=== PATIENT | female | born 1990 | race Caucasian/White ===

== ENCOUNTER 2021-12-06 03:20 | Emergency (ER) | payer OTHER ==
[~2021-12-06] VITALS: Ht 165.1 cm; Wt 54.4 kg
[2021-12-06 03:30] VITALS: BP 105/67
--- NOTE | 2021-12-06 03:34 | NUR ---
PT TO [facility] WITH W/C WAITING FOR BED
--- NOTE | 2021-12-06 03:36 | NUR ---
PT TO BED 2 VIA W/C
[2021-12-06] MEDS ORDERED: LIDOCAINE/EPI MPF 1%1:200000 30 ML VIAL INJ ONE (04:00)
[2021-12-06] MEDS ORDERED: HYDROcodone/APAP 5/325 MG 1 TAB TAB PO ONE (04:00)
[2021-12-06] MEDS ORDERED: SULFAMETH/TRIMETH DS 800/160MG 1 TAB PO ONE (04:15)
[2021-12-06] MEDS ORDERED: SULF-59 PO (04:36)
[2021-12-06 04:43] VITALS: BP 124/75
== END 2021-12-06 04:45 | disposition home or self-care (01) ==
LOC: MED 03:20
DX: L02.416 Cutaneous abscess of left lower limb (principal); F17.210 Nicotine dependence, cigarettes, uncomplicated; F15.90 Other stimulant use, unspecified, uncomplicated; Z79.899 Other long term (current) drug therapy
CPT/HCPCS: 10060; 99284; J2001